=== PATIENT | female | born 1980 | race American Indian/Alaskan Native ===

== ENCOUNTER 2018-06-26 19:17 | Inpatient (IN) | payer OTHER ==
--- NOTE | 2018-06-26 19:56 | History and Physical Report ---
History of Present Illness Date of examination: 06/26/18 Date of admission: 06/26/18 19:17 Chief complaint: Induction of labor History of present illness: Pt is a 37yo BF EDC 07/31/18; EGA 35 0/7 weeks presents for induction of labor per [facility] due to Twin gestation (Rhea/Di) and IUGR x 2. She received care at [facility] since 18 weeks and co-managed by [facility]. Both twins have significantly lagging AC measurements at the 0%. records are available and GBS is negative. 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 History: herpes Social history: no significant social history, single - Obstetrical History Expected Date of Delivery: 07/31/18 Actual Gestation: 35 Week(s) 0 Day(s) : 3 Medications and Allergies Allergies Allergy/AdvReac Type Severity Reaction Status Date / Time No Known Allergies Allergy Unverified 06/24/18 10:24 Review of Systems All systems: negative - Physical Exam Breasts: Positive: deferred Cardiovascular: Regular rate Abdomen: Positive: normal appearance, soft Genitourinary (Female): Positive: normal external genitalia Vagina: Positive: normal moisture Uterus: Positive: enlarged Extremities: Positive: normal - Obstetrical FHR: category 1 Uterine Contraction Monitor Mode: External Cervical Dilatation: 1.5 (per nurse) Cervical Effacement Percentage: 50 (per nurse) station: -2 Uterine Contraction Pattern: Irregular Results Result Diagrams: 06/26/18 20:55 All other labs normal. Ultrasound: report reviewed Assessment and Plan - Patient Problems (1) 35 weeks gestation of Onset Date: 06/26/18 Current Visit: Yes Status: Acute Plan to address problem: A: IUP @ 35 0/7 weeks Twin gestation (Rhea/Di) Asymmetric IUGR P: Admit for cervidil/pitocin induction of labor (2) Twin gestation in third trimester Onset Date: 06/26/18 Current Visit: Yes Status: Acute Qualifiers: Multiple gestation type: monochorionic and diamniotic Qualified Code(s): O30.033 - Twin , monochorionic/diamniotic, third trimester (3) Asymmetric IUGR affecting , antepartum Onset Date: 06/26/18 Current Visit: Yes Status: Acute
[2018-06-26] MEDS ORDERED: CERVIDIL VG ONE (20:45)
[2018-06-26] MEDS ORDERED: BRETHINE SUB-Q PRN (20:45)
[2018-06-26] MEDS ORDERED: STADOL IV PRN (20:45)
[2018-06-26] MEDS ORDERED: BRETHINE IVP PRN (20:45)
[2018-06-26] MEDS ORDERED: XYLOCAINE 2% INFILTRATI ONE (20:45)
[2018-06-26] MEDS ORDERED: MINERAL OIL PO PRN (20:45)
[2018-06-26] MEDS ORDERED: NARCAN 0.4 MG/1 ML IV PRN (20:45)
[2018-06-26] MEDS ORDERED: SUBLIMAZE IV PRN (20:45)
[2018-06-26] MEDS ORDERED: ZOFRAN IV PRN (20:45)
[2018-06-26] MEDS ORDERED: PITOCin/NS 20 UNIT/1000ML DRIP 20 UNITS/1,000 ML BAG IV SCH (21:00)
[2018-06-26] MEDS ORDERED: PITOCin/NS 30 UNIT/500ML 30 UNITS/500 ML BAG IV SCH ×2 (21:00)
[2018-06-26 21:19] LABS: Hematocrit 31.5 % (30.3-42.9); Hemoglobin 10.7 gm/dl (10.1-14.3); Mean Corpuscular HGB Conc 34 % (30-34); Mean Corpuscular Volume 92 fl (79-97); Platelet Count 254 K/mm3 (140-440); Red Blood Count 3.41 M/mm3 (3.65-5.03); Red Cell Distribution Width 13.3 % (13.2-15.2)
--- NOTE | 2018-06-26 22:55 | Consultation ---
Consult Note - Parent Education I met with parent(s) and discussed the following:: Need for NICU admission, Poss ible need for intubation and surfactant or other resp support, Temperature regulation, Possible need for IV fluids/TPN and IV antibiotics, Possible need for umbilical lines, Importance of providing breast milk & encouraged pumping aft delivery (exclusively ; wants to use Vegan milk if EBM not adequate), Slow feeding advancement and monitoring of tolerance. NG/OG feeds, Need to monitor for jaundice, Data for survival & survival without significant co-morbidities Parent(s) demonstrated understanding of all the information:: Yes Assessment and Plan - Assessment Gestation:: 35 Estimated Weight: N/A Baby's gender: Female (mon-di twins baby girls) Baby's name: N/A Additional Comment: Pt is a 37yo BF EDC 07/31/18; EGA 35 0/7 weeks presents for induction of labor per [facility] due to Twin gestation (Petroleum/Di) and IUGR x 2. She received care at [facility] since 18 weeks and co- managed by [facility]. Both twins have significantly lagging AC measurements at the 0%. - Plan Plan: Agree with Mag & steroids Will attend delivery Please call NICU with questions
[2018-06-26] MEDS ORDERED: AMBIEN PO PRN (23:31)
[2018-06-27] MEDS: LACTATED RINGERS 1,000 ML IV SCH ×3 (03:00→11:03)
--- NOTE | 2018-06-27 08:46 | Progress Note ---
Assessment and Plan - Patient Problems (1) 35 weeks gestation of Onset Date: 06/26/18 Current Visit: Yes Status: Acute Plan to address problem: A: IUP @ 35 1/7 weeks Twin gestation (Mar[place]/Di) Asymmetric IUGR P: Continue with pitocin induction of labor Expectant vaginal delivery (2) Twin gestation in third trimester Onset Date: 06/26/18 Current Visit: Yes Status: Acute Qualifiers: Multiple gestation type: monochorionic and diamniotic Qualified Code(s): O30.033 - Twin , monochorionic/diamniotic, third trimester (3) Asymmetric IUGR affecting , antepartum Onset Date: 06/26/18 Current Visit: Yes Status: Acute Subjective - Subjective Date of service: 06/27/18 Principal diagnosis: IUP @ 35 1/7 weeks; Twin gestation; IUGR Interval history: Pt is a 37yo BF EDC 07/31/18; EGA 35 1/7 weeks presents for induction of labor per [facility] due to Twin gestation (Marion/Di) and IUGR x 2. She received care at [facility] since 18 weeks and co-managed by [facility]. Both twins have significantly lagging AC measurements at the 0%. records are available and GBS is negative. She received cervidil last night, and currently joel q 3-4 mins. Patient reports: movement normal, contractions, no new complaints, no loss of fluid, no vaginal bleeding Objective - Vital Signs Vital Signs: Vital Signs - 12hr 06/26/18 06/26/18 06/26/18 21:27 21:30 23:12 Temperature 97.6 F Pulse Rate 87 83 Respiratory 18 Rate Blood Pressure 113/60 121/56 O2 Sat by Pulse Oximetry 06/27/18 06/27/18 06/27/18 01:12 01:15 03:14 Temperature 97.9 F Pulse Rate 95 H 86 Respiratory 20 Rate Blood Pressure 99/54 91/51 O2 Sat by Pulse Oximetry 06/27/18 06/27/18 06/27/18 05:05 05:13 05:15 Temperature 98.1 F Pulse Rate 97 H 100 H Respiratory 18 Rate Blood Pressure 122/61 117/66 O2 Sat by Pulse Oximetry 06/27/18 06/27/18 06/27/18 07:11 08:22 08:24 Temperature 98.3 F Pulse Rate 81 76 Respiratory Rate Blood Pressure O2 Sat by Pulse 98 94 Oximetry 06/27/18 06/27/18 06/27/18 08:27 08:32 08:41 Temperature Pulse Rate 86 83 76 Respiratory Rate Blood Pressure O2 Sat by Pulse 95 95 97 Oximetry - Exam Abdomen: Present: normal appearance, soft Uterus: Present: normal FHR: category 1 Uterine Contraction Monitor Mode: External Cervical Dilatation: 3 Cervical Effacement Percentage: 70 station: -1 Uterine Contraction Pattern: Regular Uterine Tone Measurement Phase: Contraction Uterine Contraction Intensity: Moderate - Labs Labs: Abnormal Labs 06/26/18 20:55 RBC 3.41 L Laboratory Results - last 24 hr 06/26/18 06/26/18 06/26/18 20:55 20:55 20:55 WBC 10.1 RBC 3.41 L Hgb 10.7 Hct 31.5 MCV 92 MCH 31 MCHC 34 RDW 13.3 Plt Count 254 Hep Bs Antigen Rubella IgG Antibody Immune Blood Type B POSITIVE Antibody Screen Negative 06/26/18 20:55 WBC RBC Hgb Hct MCV MCH MCHC RDW Plt Count Hep Bs Antigen Non-reactive Rubella IgG Antibody Blood Type Antibody Screen
--- NOTE | 2018-06-27 10:23 | Anesthesia Consultation ---
Anesthesia Consult and Med Hx Date of service: 06/27/18 - Airway Anesthetic Teeth Evaluation: Good ROM Head & Neck: Adequate Mental/Hyoid Distance: Adequate Mallampati Class: Class II Intubation Access Assessment: Probably Good - Pre-Operative Health Status ASA Pre-Surgery Classification: ASA2 Proposed Anesthetic Plan: Epidural, Spinal - Pulmonary Hx Asthma: No - Cardiovascular System Hx Hypertension: No - Central Nervous System Hx Seizures: No Hx Psychiatric Problems: No - Endocrine Hx Renal Disease: No Hx Hypothyroidism: No Hx Hyperthyroidism: No - Hematic Hx Anemia: No Hx Sickle Cell Disease: No - Other Systems Hx Alcohol Use: No
[2018-06-27] MEDS ORDERED: NARCAN 2 MG/2 ML IV PRN (10:29)
[2018-06-27] MEDS ORDERED: fentaNYL-BUPIV 2 MCG/ML-0.125% 200 MCG/100 ML BAG EPIDURAL SCH (11:00)
[2018-06-27] MEDS ORDERED: XYLOCAINE MPF 2% ONE (12:38)
--- NOTE | 2018-06-27 13:43 | Procedure Note ---
OB Delivery Note - Delivery Date of Delivery: 06/27/18 Surgeon: ABBI LYON Estimated blood loss: 200cc - Vaginal Delivery presentation: vertex Delivery position: OA Intrapartum events: labor-<37 weeks, PROM->1hr before delivery, mult.variable deceleratio Delivery induction: cervidil Delivery augmentation: rupture of membranes, pitocin Delivery monitor: external FHT, external uterine Route of delivery: Delivery placenta: spontaneous Delivery cord: 3 umbilical vessels Episiotomy: none Delivery laceration: none Anesthesia: epidural Delivery comments: Twin A - delivered OA, nuchal cord x 2 reduced and infant placed on Mom's chest for [id number] bonding and delayed cord clamping, cut by Grandma U/S performed showing Twin B in cephalic presentation. Amniotomy performed revealing clear amniotic fluid. Twin B - delivered OA and placed on Mom's chest for [id number] bonding and delayed cord clamping, cut again by Grandma - A at 1 minute: 8 at 5 minutes: 9 Infant Gender: Female (1546gms) B at 1 minute: 8 at 5 minutes: 9 Infant Gender: Female (1843gm)
[2018-06-27] MEDS ORDERED: PHENERGAN PR PRN (13:49)
[2018-06-27] MEDS ORDERED: BENADRYL PO PRN (13:49)
[2018-06-27] MEDS ORDERED: DULCOLAX PR PRN (13:49)
[2018-06-27] MEDS ORDERED: LANSINOH TP PRN (13:49)
[2018-06-27] MEDS ORDERED: MILK OF MAGNESIA PO PRN (13:49)
[2018-06-27] MEDS ORDERED: ZOFRAN IV PRN (13:49)
[2018-06-27] MEDS ORDERED: TYLENOL PO PRN (13:49)
[2018-06-27] MEDS ORDERED: PHENERGAN PO PRN (13:49)
[2018-06-27] MEDS ORDERED: NORCO 5/325 PO PRN (13:49)
[2018-06-27] MEDS ORDERED: TUCKS PAD TP PRN (13:49)
[2018-06-27] MEDS ORDERED: PITOCin/NS 20 UNIT/1000ML DRIP 20 UNITS/1,000 ML BAG IV SCH (14:00)
[2018-06-27] MEDS ORDERED: SODIUM CHLORIDE FLUSH SYRINGE 10 ML IV NR (14:00)
[2018-06-27] MEDS: IBUPROFEN PO SCH ×2 (15:13→21:57)
[2018-06-27] MEDS: FEOSOL PO SCH (21:56)
[2018-06-27] MEDS: COLACE PO SCH (21:56)
[2018-06-28 01:21] LABS: Hematocrit 26.9 % (30.3-42.9); Hemoglobin 9.1 gm/dl (10.1-14.3)
[2018-06-28] MEDS: IBUPROFEN PO SCH ×3 (04:19→19:42)
[2018-06-28] MEDS ORDERED: M-M-R II VACCINE SUB-Q ONE (06:00)
[2018-06-28] MEDS ORDERED: BOOSTRIX IM ONE (06:00)
--- NOTE | 2018-06-28 09:59 | Progress Note ---
Assessment and Plan A: day 1 S/P spontaneous vaginal delivery twins. Anemia secondary to and blood loss. P: Continue iron supplementation. Subjective - Subjective Date of service: 06/28/18 Principal diagnosis: day 1 S/P twins Interval history: day 1 S/P spontaneous vaginal delivery twins. Patient is doing well. She is tolerating a vegan diet without nausea or vomiting. She is ambulating w ell, voiding without difficulty. She reports a small amount of lochia. Patient denies headache, chest pain, cough, dizziness, abdominal pain, leg pain, abdominal pain, or heavy vaginal bleeding. Patient reports: appetite normal, voiding normally, pain well controlled, flatus, ambulating normally, no dizzy ambulation, no nauseated [place]: doing well Objective - Vital Signs Latest vital signs: Vital Signs Temp Pulse Resp BP BP Pulse Ox 06/28/18 07:44 98.0 F 64 16 124/68 96 06/28/18 00:00 97.5 F L 61 20 110/40 100 06/27/18 17:21 98.6 F 68 18 114/55 06/27/18 16:00 97.7 F 76 18 118/58 99 06/27/18 14:44 57 L 121/69 06/27/18 14:14 58 L 115/61 06/27/18 13:44 58 L 118/66 06/27/18 13:13 74 113/55 06/27/18 12:58 85 115/55 81 L 06/27/18 12:55 79 97 06/27/18 12:50 84 99 06/27/18 12:45 112 H 100 06/27/18 12:40 86 100 06/27/18 12:35 86 98 06/27/18 12:30 86 97 06/27/18 12:29 85 142/61 06/27/18 12:25 73 100 06/27/18 12:20 97 H 98 06/27/18 12:15 75 98 06/27/18 12:12 63 108/59 06/27/18 12:10 67 98 06/27/18 12:05 72 99 06/27/18 12:00 72 96 06/27/18 11:58 66 105/59 06/27/18 11:55 72 97 06/27/18 11:50 64 98 06/27/18 11:45 68 97 05/03/19 11:42 71 107/58 94 06/27/18 11:40 64 96 06/27/18 11:35 70 97 06/27/18 11:30 61 97 06/27/18 11:27 74 107/58 06/27/18 11:25 67 107/57 97 06/27/18 11:23 61 111/59 06/27/18 11:21 80 109/60 06/27/18 11:20 66 98 06/27/18 11:19 75 110/59 06/27/18 11:17 77 112/57 06/27/18 11:15 74 108/60 99 06/27/18 11:13 69 115/65 06/27/18 11:11 77 119/65 06/27/18 11:10 80 98 06/27/18 11:09 71 112/61 06/27/18 11:07 67 106/58 06/27/18 11:05 63 114/59 98 06/27/18 11:03 62 122/63 06/27/18 11:02 64 123/58 06/27/18 11:00 62 100 06/27/18 10:59 62 105/58 06/27/18 10:58 70 111/59 06/27/18 10:56 68 105/60 06/27/18 10:55 97 H 105/61 99 06/27/18 10:53 70 105/58 06/27/18 10:51 70 106/59 06/27/18 10:50 71 100 06/27/18 10:49 76 104/57 06/27/18 10:47 82 111/57 06/27/18 10:45 97 H 117/62 100 06/27/18 10:43 103 H 128/69 06/27/18 10:41 89 127/61 06/27/18 10:40 90 97 06/27/18 09:55 77 114/63 Intake and Output 06/27/18 06/28/18 06/28/18 23:59 07:59 15:59 Intake Total 480 Output Total 1000 Balance -520 Intake: Oral 480 Output: Urine 1000 Void 1000 Other: Total, Intake Amount 480 Total, Output Amount 400 # Voids Void 1 - Exam Abdomen: Present: normal appearance, soft. Absent: distention, tenderness, guarding, rigidity Uterus: Present: normal, firm, fundal height below umbilicus. Absent: bogginess, tenderness Extremities: Present: normal. Absent: tenderness, edema - Labs Labs: Abnormal lab results 06/28/18 Range/Units 01:06 Hgb 9.1 L (10.1-14.3) gm/dl Hct 26.9 L (30.3-42.9) %
[2018-06-28] MEDS: FEOSOL PO SCH ×2 (10:20→22:27)
[2018-06-28] MEDS: COLACE PO SCH ×2 (10:20→22:27)
[2018-06-28] MEDS: PRENATAL VITAMIN PO SCH (10:20)
[2018-06-29] MEDS: IBUPROFEN PO SCH ×4 (03:52→16:03)
[2018-06-29] MEDS: COLACE PO SCH (09:21)
[2018-06-29] MEDS: FEOSOL PO SCH (09:21)
[2018-06-29] MEDS: PRENATAL VITAMIN PO SCH (09:21)
[2018-06-29 16:45] VITALS: BP 113/56
--- NOTE | 2018-06-29 17:08 | Progress Note ---
<MORENITABARB Dong - Last Filed: 06/29/18 17:01> Assessment and Plan A: day 2 S/P spontaneous vaginal delivery twins. Anemia secondary to and blood loss. Heart murmur; patient is asymptomatic. P: Consulted with Dr. Jeronimo re: this patient's low pulse, BPs, and heart murmur. Dr. Jeronimo states it is OK to discharge patient home today and follow up this week with primary OB for referral if necessary as an outpatient. Advised patient to follow up with Dr. Husain this week. discharge instructions and warning signs discussed with patient in detail. Advised patient to avoid lifting and heavy housework, intercourse, driving. Advised patient to continue taking her vitamins and also to take iron supplements OTC (Slow Fe or Ferrous Sulfate) at home. Patient voiced understanding of all discharge instructions. Subjective - Subjective Date of service: 06/29/18 Principal diagnosis: day 2 S/P twins Interval history: day 2 S/P spontaneous vaginal delivery twins. Patient is doing well. She is tolerating a vegan diet without nausea or vomiting. She is ambulating well, voiding without difficulty. She reports a small amount of lochia. Patient denies headache, chest pain, cough, dizziness, abdominal pain, leg pain, abdominal pain, or heavy vaginal bleeding. Patient desires discharge today. Patient reports: appetite normal, voiding normally, pain well controlled, flatus, ambulating normally, no dizzy ambulation, no nauseated [place]: doing well Objective - Vital Signs Latest vital signs: Vital Signs Temp Pulse Resp BP Pulse Ox 06/29/18 16:44 98.0 F 59 L 16 113/56 06/29/18 09:00 18 06/29/18 07:48 98.1 F 57 L 16 114/71 96 06/29/18 00:45 97.9 F 54 L 18 102/48 99 Intake and Output 06/29/18 06/29/18 06/29/18 07:59 15:59 23:59 Intake Total 480 Balance 480 Intake: Oral 480 Other: Total, Intake Amount 240 # Voids Void 1 - Exam Cardiovascular: Present: Regular rate, Normal S1, Normal S2, Other (heart murmur heard) Lungs: Present: Clear to auscultation Abdomen: Present: normal appearance, soft. Absent: distention, tenderness, guarding, rigidity Uterus: Present: normal, firm, fundal height at umbilicus. Absent: bogginess, tenderness Extremities: Present: normal. Absent: tenderness, edema <ZITA EJRONIMO - Last Filed: 07/03/18 19:05> Assessment and Plan I explained to the nurse audiology doctor, Barb that a systolic murmur in is physiologic, benign and self-limited. Diastolic murmurs require follow-up. I also explained asymptomatic bradycardia can be followed-up with primary OB in 1 week with precautions for chest pain or shortness of breath to return to the office or emergency room.
--- NOTE | 2018-06-29 17:15 | Discharge Summary ---
Providers - Providers Date of Admission: 06/26/18 19:17 Date of discharge: 06/29/18 Attending physician: ABBI LYON Primary care physician: ABBI LYON Hospitalization Reason for admission: induction of labor Delivery: Episiotomy: none Laceration: none Other procedures: none complications: none Discharge diagnosis: IUP at term delivered [place] baby: twins Pertinent studies: Labs Hospital course: Normal course Condition at discharge: Good Disposition: DC-01 TO HOME OR SELFCARE - Discharge Diagnoses (1) Twin delivered vaginally Status: Acute (2) Anemia due to blood loss Status: Acute Plan - Provider Discharge Summary Activity: routine, no sex for 6 weeks, no heavy lifting 4 weeks, no strenuous exercise Diet: routine Instructions: routine Additional instructions: Continue taking your vitamins and iron supplements at home. Call your doctor immediately for: * Fever > 100.5 * Heavy vaginal bleeding ( >1 pad per hour) * Severe persistent headache * Shortness of breath * Reddened, hot, painful area to leg or breast - Follow up plan Follow up: ABBI LYON MD [Primary Care Provider] - 3 Days Forms: [facility] Discharge Summary, Discharge Signature Page
== END 2018-06-29 18:40 | disposition home or self-care (01) | DRG 774 ==
LOC: EEVIPCON 19:17 → LD 19:17 → OB 06-27 16:55
PROVIDERS: ADMIT Obstetrics & Gynecology; ATTEND Obstetrics & Gynecology
PROC: 10E0XZZ Delivery of Products of Conception, External Approach (ICD-10-PCS; principal; 2018-06-27)
PROC: 3E0P7VZ Introduction of Hormone into Female Reproductive, Via Natural or Artificial Opening (ICD-10-PCS; 2018-06-27)
PROC: 3E0R3BZ Introduction of Anesthetic Agent into Spinal Canal, Percutaneous Approach (ICD-10-PCS; 2018-06-27)
PROC: 00HU33Z Insertion of Infusion Device into Spinal Canal, Percutaneous Approach (ICD-10-PCS; 2018-06-27)
PROC: 10907ZU Drainage of Amniotic Fluid, Diagnostic from Products of Conception, Via Natural or Artificial Opening (ICD-10-PCS; 2018-06-27)
PROC: 3E0234Z Introduction of Serum, Toxoid and Vaccine into Muscle, Percutaneous Approach (ICD-10-PCS; 2018-06-28)
DX: O76 Abnormality in fetal heart rate and rhythm complicating labor and delivery (principal); O99.42 Diseases of the circulatory system complicating childbirth; O60.14X0 Preterm labor third trimester with preterm delivery third trimester, not applicable or unspecified; O30.033 Twin pregnancy, monochorionic/diamniotic, third trimester; O69.81X0 Labor and delivery complicated by cord around neck, without compression, not applicable or unspecified; O99.02 Anemia complicating childbirth; D64.9 Anemia, unspecified; R01.1 Cardiac murmur, unspecified; O36.5930 Maternal care for other known or suspected poor fetal growth, third trimester, not applicable or unspecified; Z37.2 Twins, both liveborn; Z3A.35 35 weeks gestation of pregnancy; Z23 Encounter for immunization; D62 Acute posthemorrhagic anemia
CPT/HCPCS: 36415; 59200; 85014; 85018; 85027; 86592; 86706; 86762; 86850; 86900; 86901; 88307; 96372; G0378; A6250; J0595; J0702; J2590; J7120